=== PATIENT | female | born 1990 | race Caucasian/White ===

== ENCOUNTER 2016-03-29 22:24 | Emergency (ER) | payer OTHER ==
[~2016-03-29] VITALS: Ht 167.6 cm; Wt 64.1 kg
[~2016-03-29 22:24] MED LIST: NORG1TAB69 PO
[2016-03-30 01:27] VITALS: BP 116/70
== END 2016-03-30 01:28 | disposition home or self-care (01) ==
LOC: EMS 22:26
DX: B86 Scabies (principal)
CPT/HCPCS: 81025; 99282